=== PATIENT | male | born 1975 | race Caucasian/White ===

== ENCOUNTER 2022-06-11 15:45 | Outpatient (CLI) | payer MEDICARE, SELFPAY ==
--- NOTE | 2022-06-11 16:34 | XR_ITS ---
WS: [id number] EXAMINATION: XR lumbar spine f/e only [id number] L-SPINE : 3 views REASON FOR EXAM: VERTEBROGENIC LOW BACK PAIN COMPARISON: None available. ORDER DATE: 06/11/2022 4:38 PM FINDINGS: The lumbar vertebral bodies are normal. There is intervertebral disc narrowing from L3 to S1 which is moderate and similar at each level. Increased lumbar lordosis no interval change on flexion and exte nsion. In the lumbar vertebra, there is no evidence of compression deformities or spondylolisthesis. XR/XR lumbar spine f/e only [id number] IMPRESSION: Findings as above.
== END 2022-06-11 15:46 | disposition home or self-care (01) ==
PROVIDERS: PCP Internal Medicine; Visit Provider Nurse Practitioner
DX: M54.50 Low back pain, unspecified (principal)
CPT/HCPCS: 72120